=== PATIENT | male | born 1955 | race African-American/Black ===

== ENCOUNTER 2017-02-05 23:35 | Emergency (ER) | payer SELFPAY ==
[2017-02-06 00:30] VITALS: BP 173/115
[2017-02-06] MEDS ORDERED: cloNIDine HCL 0.1 MG TABLET PO ONE (00:30)
[2017-02-06 00:55] LABS: BASO # 0.1 x10^3/uL (0.0-0.2); BASO % 1 % (0-3); EOS # 0.2 x10^3/uL (0.0-0.7); EOS % 3 % (0-3); HEMATOCRIT 39.4 % (39.0-53.0); LYMPH # 1.5 x10^3/uL (1.0-4.8); LYMPH % 23 % (24-48); MEAN CORPUSCULAR HEMOGLOBIN 28 pg (25-35); MEAN CORPUSCULAR HGB CONC 33 g/dL (31-37); MEAN CORPUSCULAR VOLUME 84 fL (79-100); MONO # 0.7 x10^3/uL (0.0-1.1); MONO % 11 % (0-9); NEUT # 4.1 x10^3uL (1.8-7.7); NEUT % 63 % (31-73); PLATELET COUNT 289 x10^3/uL (140-400); RED CELL DISTRIBUTION WIDTH 15.2 % (11.5-14.5); WHITE BLOOD COUNT 6.5 x10^3/uL (4.0-11.0)
[2017-02-06 01:07] LABS: ALBUMIN 3.1 g/dL (3.4-5.0); ALBUMIN/GLOBULIN RATIO 0.8 (1.0-1.7); CALCIUM 8.4 mg/dL (8.5-10.1); GFR 75.7; TOTAL BILIRUBIN 0.1 mg/dL (0.2-1.0); TOTAL PROTEIN 6.8 g/dL (6.4-8.2)
[2017-02-06 01:35] LABS: BACTERIA,URINE 0 /HPF (0-FEW); BILIRUBIN,URINE NEG (NEG); CLARITY,URINE CLEAR; COLOR,URINE YELLOW; GLUCOSE,URINE NEG (NEG); NITRITE,URINE NEG (NEG); RBC,URINE 0 /HPF (0-2); SQUAMOUS EPITHELIAL CELL,UR OCC /LPF; UROBILINOGEN,URINE 0.2 mg/dL (0.2 mg/dL); WBC,URINE RARE /HPF (0-4)
[2017-02-06 01:37] LABS: BARBITURATES NEG (NEG); BENZODIAZEPINES NEG (NEG); CANNABINOIDS POS (NEG); COCAINE NEG (NEG); METHADONE POS (NEG); OPIATES NEG (NEG); PHENCYCLIDINE NEG (NEG)
[2017-02-06 01:38] LABS: AMPHETAMINE/METHAMPHETAMINE NEG (NEG)
[2017-02-06] MEDS ORDERED: FUROSEMIDE 40 MG/4 ML VIAL IVP ONE (02:15)
[2017-02-06] MEDS ORDERED: FUROSEMIDE 40 MG TABLET ONE (02:19)
[2017-02-06] MEDS ORDERED: FUROSEMIDE 40 MG TABLET PO ONE (02:30)
[2017-02-06] MEDS ORDERED: CLON0.1T PO (02:30)
--- NOTE | 2017-02-06 02:30 | PHYS DOC ---
Adult General Chief Complaint Chief Complaint: LOWER EXTREMITY SWELLING HPI HPI Patient is a 62-year-old male presenting to the emergency department for evaluation of a primary complaint of peripheral edema. This swelling has been going on for at least 2 weeks and he has been told by his methadone clinic to elevate his legs but he says he does not think that that is helping. Patient says that he is urinating more often but he has no painful urination. He also denies any chest pain shortness of breath fevers chills nausea vomiting or diarrhea. Patient says that he has no medical problems other than opioid and alcohol abuse for which she is seeking help currently. He says that he has not been shaky and does not think that he is withdrawing currently. He is taking his methadone as prescribed. Review of Systems Review of Systems Constitutional: Denies fever or chills [] Eyes: Denies change in visual acuity, redness, or eye pain [] HENT: Denies nasal congestion or sore throat [] Respiratory: Denies cough or shortness of breath [] Cardiovascular: No additional information not addressed in HPI [] GI: Denies abdominal pain, nausea, vomiting, bloody stools or diarrhea [] : Denies dysuria or hematuria [] Musculoskeletal: Denies back pain or joint pain [] Integument: Denies rash or skin lesions [] Neurologic: Denies headache, focal weakness or sensory changes [] All other systems were reviewed and found to be within normal limits, except as documented in this note. Current Medications Current Medications Current Medications Medications (Trade) Dose Ordered Sig/Raad Start Time Stop Time Status Last Admin Dose Admin Clonidine HCl (Catapres) 0.2 mg 1X ONCE 02/06/17 00:30 02/06/17 00:31 DC 02/06/17 00:30 0.2 MG Furosemide (Lasix) 40 mg STK-MED ONCE 02/06/17 02:19 02/06/17 02:20 DC Allergies Allergies Allergies Coded Allergies Type Severity Reaction Last Updated Verified Unable to Assess 02/06/17 No Physical Exam Physical Exam Constitutional: Well developed, well nourished, no acute distress, non-toxic appearance. [] HENT: Normocephalic, atraumatic, bilateral external ears normal, oropharynx moist, no oral exudates, nose normal. [] Eyes: PERRLA, EOMI, conjunctiva normal, no discharge. [] Neck: Normal range of motion, no tenderness, supple, no stridor. [] Cardiovascular:Heart rate regular rhythm, no murmur [] Lungs & Thorax: Bilateral breath sounds clear to auscultation [] Abdomen: Bowel sounds normal, soft, no tenderness, no masses, no pulsatile masses. [] Skin: Warm, dry, no erythema, no rash. [] Back: No tenderness, no CVA tenderness. [] Extremities: No tenderness, no cyanosis, no clubbing, ROM intact, 1-2+ edema BL equal. [] Neurologic: Alert and oriented X 3, normal motor function, normal sensory function, no focal deficits noted. [] Current Patient Data Vital Signs Vital Signs Date Time Temp Pulse Resp B/P (MAP) Pulse Ox O2 Delivery O2 Flow Rate FiO2 02/06/17 00:30 98 173/115 Lab Results Laboratory Tests Test 02/06/17 00:38 02/06/17 01:00 White Blood Count 6.5 x10^3/uL (4.0-11.0) Red Blood Count 4.70 x10^6/uL (4.30-5.70) Hemoglobin 13.0 g/dL (13.0-17.5) Hematocrit 39.4 % (39.0-53.0) Mean Corpuscular Volume 84 fL (79-100) Mean Corpuscular Hemoglobin 28 pg (25-35) Mean Corpuscular Hemoglobin Concent 33 g/dL (31-37) Red Cell Distribution Width 15.2 % (11.5-14.5) H Platelet Count 289 x10^3/uL (140-400) Neutrophils (%) (Auto) 63 % (31-73) Lymphocytes (%) (Auto) 23 % (24-48) L Monocytes (%) (Auto) 11 % (0-9) H Eosinophils (%) (Auto) 3 % (0-3) Basophils (%) (Auto) 1 % (0-3) Neutrophils # (Auto) 4.1 x10^3uL (1.8-7.7) Lymphocytes # (Auto) 1.5 x10^3/uL (1.0-4.8) Monocytes # (Auto) 0.7 x10^3/uL (0.0-1.1) Eosinophils # (Auto) 0.2 x10^3/uL (0.0-0.7) Basophils # (Auto) 0.1 x10^3/uL (0.0-0.2) Prothrombin Time 9.9 SEC (9.4-11.4) Prothrombin Time INR 1.0 (0.9-1.1) PTT 23 SEC (23-33) Sodium Level 138 mmol/L (136-145) Potassium Level 4.0 mmol/L (3.5-5.1) Chloride Level 103 mmol/L (98-107) Carbon Dioxide Level 28 mmol/L (21-32) Anion Gap 7 (6-14) Blood Urea Nitrogen 16 mg/dL (8-26) Creatinine 1.0 mg/dL (0.7-1.3) Estimated GFR (Cockcroft-Gault) 75.7 BUN/Creatinine Ratio 16 (6-20) Glucose Level 100 mg/dL (70-99) H Calcium Level 8.4 mg/dL (8.5-10.1) L Magnesium Level 2.0 mg/dL (1.8-2.4) Total Bilirubin 0.1 mg/dL (0.2-1.0) L Aspartate Amino Transferase (AST) 18 U/L (15-37) Alanine Aminotransferase (ALT) 16 U/L (16-63) Alkaline Phosphatase 105 U/L (46-116) Ammonia 16 mcmol/L (11-34) Total Protein 6.8 g/dL (6.4-8.2) Albumin 3.1 g/dL (3.4-5.0) L Albumin/Globulin Ratio 0.8 (1.0-1.7) L Lipase 160 U/L (73-393) Ethyl Alcohol Level < 10 mg/dL (0-10) Urine Collection Type Unknown Urine Color Yellow Urine Clarity Clear Urine pH 8.5 Urine Specific [place] 1.015 Urine Protein Neg (NEG-TRACE) Urine Glucose (UA) Neg mg/dL (NEG) Urine Ketones (Stick) Neg mg/dL (NEG) Urine Blood Neg (NEG) Urine Nitrite Neg (NEG) Urine Bilirubin Neg (NEG) Urine Urobilinogen Dipstick 0.2 mg/dL (0.2 mg/dL) Urine Leukocyte Esterase Neg (NEG) Urine RBC 0 /HPF (0-2) Urine WBC Rare /HPF (0-4) Urine Squamous Epithelial Cells Occ /LPF Urine Bacteria 0 /HPF (0-FEW) Urine Opiates Screen Neg (NEG) Urine Methadone Screen Pos (NEG) Urine Barbiturates Neg (NEG) Urine Phencyclidine Screen Neg (NEG) Urine Amphetamine/Methamphetamine Neg (NEG) Urine Benzodiazepines Screen Neg (NEG) Urine Cocaine Screen Neg (NEG) Urine Cannabinoids Screen Pos (NEG) Urine Ethyl Alcohol Neg (NEG) EKG EKG [] Radiology/Procedures Radiology/Procedures [] Course & Med Decision Making Course & Med Decision Making Patient with bilateral peripheral edema that is likely some from venous insufficiency. There is no signs or symptoms of liver failure and kidney failure DVT or congestive heart failure. I ordered a BNP initially however it somehow was canceled. I told the patient that I would like to reorder it and redraw however he refused stating that he wanted to leave as he felt well. He verbalized understanding of why I wanted to do it rule out congestive heart failure. Certainly this is less likely given he has no shortness of breath or chest pain but he does have elevated blood pressure putting him at high risk for heart failure. His blood pressure is quite elevated here and he continues to deny any alcohol withdrawal symptoms and he does not have any hand tremors or tongue fasciculations. I told him that I will prescribe some clonidine as this would help any potential withdrawal symptoms and it will help his blood pressure as well but I told him it is very important that he follows with a primary care physician for these complaints as he would likely need further workup for his hypertension and possible medication adjustments as well. Resources were provided to the patient for primary follow-up and he was told to take his medications as prescribed and come back to the ED with any new or worsening pain fevers vomiting or other general concerns. Patient aware and agreeable with plan for discharge and verbalized understanding of the need for short-term follow-up and strict ED return precautions discussed as above. Dragon Disclaimer Dragon Disclaimer This electronic medical record was generated, in whole or in part, using a voice recognition dictation system. Departure Departure: Impression: Primary Impression: Peripheral edema Additional Impression: Hypertension Disposition: 01 HOME, SELF-CARE Condition: STABLE Patient Instructions: Peripheral Edema Scripts Clonidine Hcl (CLONIDINE HCL) 0.1 Mg Tablet 0.1 MG PO BID, #60 TAB Prov: EUGENIA BARNHART DO 02/06/17 Problem Qualifiers EUGENIA BARNHART DO Feb 06, 2017 02:30
== END 2017-02-06 02:42 | disposition home or self-care (01) ==
LOC: ER 23:35
DX: R60.0 Localized edema (principal); I10 Essential (primary) hypertension; F11.10 Opioid abuse, uncomplicated; F10.10 Alcohol abuse, uncomplicated
CPT/HCPCS: 36415; 80053; 80307; 81001; 82140; 83690; 83735; 85025; 85610; 85730; 99284; G0480; G0479

== ENCOUNTER 2017-02-13 05:30 | Emergency (ER) | payer SELFPAY ==
[~2017-02-13 05:30] MED LIST: CLON0.1T PO
[2017-02-13] MEDS ORDERED: LISI1TAB3 PO (06:30)
--- NOTE | 2017-02-13 06:30 | PHYS DOC ---
Past History Past Medical History: Hypertension Alcohol Use: Heavy Drug Use: Marijuana, Methadone Adult General Chief Complaint Chief Complaint: LOWER EXTREMITY SWELLING HPI HPI 62-year-old male patient brought his girlfriend to ER for evaluation and later on the evening of swelling of both of his legs for more than one week. Patient also states his blood pressure is elevated and he didn't take his medication today. Patient did not check his blood pressure today and just refers to the blood pressure obtaining in triage. Patient denies chest pain, shortness of breath, generalized weakness, headache, focal neuro deficit, fever and chills. Patient was seen on February 06 with the same complaint and had extensive evaluation with normal renal function tests and started on clonidine twice a day. Review of Systems Review of Systems Constitutional: Denies fever or chills [] Eyes: Denies change in visual acuity, redness, or eye pain [] HENT: Denies nasal congestion or sore throat [] Respiratory: Denies cough or shortness of breath [] Cardiovascular: No additional information not addressed in HPI [] GI: Denies abdominal pain, nausea, vomiting, bloody stools or diarrhea [] : Denies dysuria or hematuria [] Musculoskeletal: Denies back pain or joint pain, reports ankle edema [] Integument: Denies rash or skin lesions [] Neurologic: Denies headache, focal weakness or sensory changes [] Endocrine: Denies polyuria or polydipsia [] All other systems were reviewed and found to be within normal limits, except as documented in this note. Current Medications Current Medications Current Medications Medications (Trade) Dose Ordered Sig/Raad Start Time Stop Time Status Last Admin Dose Admin Clonidine HCl (Catapres) 0.1 mg 1X ONCE 02/13/17 07:00 02/13/17 07:01 Allergies Allergies Allergies Coded Allergies Type Severity Reaction Last Updated Verified Unable to Assess 02/06/17 No Physical Exam Physical Exam Constitutional: No acute distress, non-toxic appearance,anxious. [] HENT: Normocephalic, atraumatic, bilateral external ears normal, oropharynx moist, no oral exudates, nose normal. [] Eyes: PERRLA, EOMI, conjunctiva normal, no discharge. [] Neck: Normal range of motion, no tenderness, supple, no stridor. [] Cardiovascular:Heart rate regular rhythm, no murmur [] Lungs & Thorax: Bilateral breath sounds clear to auscultation [] Abdomen: Bowel sounds normal, soft, no tenderness, no masses, no pulsatile masses. [] Skin: Warm, dry, no erythema, no rash. [] Back: No tenderness, no CVA tenderness. [] Extremities: No tenderness, no cyanosis, no clubbing, ROM intact, trace edema around ankles [] Neurologic: Alert and oriented X 3, normal motor function, normal sensory function, no focal deficits noted. [] Psychologic: Affect normal, judgement normal, mood normal. [] Current Patient Data Vital Signs Vital Signs Date Time Temp Pulse Resp B/P (MAP) Pulse Ox O2 Delivery O2 Flow Rate FiO2 02/13/17 05:55 98.2 102 20 98 Room Air EKG EKG [] Radiology/Procedures Radiology/Procedures [] Course & Med Decision Making Course & Med Decision Making Evaluation of patient in ER showed 62-year-old male patient complaining of elevation of blood pressure and bilateral leg swelling who had evaluation in ER visit 1 week ago with the same problem and started on clonidine. Patient had blood pressure of 160s over 115 arrival to ER and treated with clonidine and his blood pressure dropped to 157/101 and did not want to have blood tests. Plan to give prescription for lisinopril/hydrochlorothiazide. Patient instructed to quit smoking cigarettes and drinking of alcohol and using methadone and marijuana. Dragon Disclaimer Dragon Disclaimer This electronic medical record was generated, in whole or in part, using a voice recognition dictation system. Departure Departure: Impression: Primary Impression: Uncontrolled hypertension Additional Impressions: Pedal edema Tobacco abuse Tobacco abuse counseling History of substance abuse Disposition: HOME, SELF-CARE (At 0640) Condition: IMPROVED Referrals: PCP,NO (PCP) Patient Instructions: Hypertension, [id number], Peripheral Edema Scripts Lisinopril/Hydrochlorothiazide (LISINOPRIL-HCTZ 10-12.5 MG TAB) 1 Each Tablet 1 TAB PO DAILY, #30 TAB 5 Refills Prov: BULMARO RAUSCH MD 02/13/17 Problem Qualifiers BULMARO RAUSCH MD Feb 13, 2017 06:30
[2017-02-13] MEDS ORDERED: cloNIDine HCL 0.1 MG TABLET PO ONE (07:00)
[2017-02-13 07:24] VITALS: BP 151/101
== END 2017-02-13 07:26 | disposition home or self-care (01) ==
LOC: ER 05:30
DX: I10 Essential (primary) hypertension (principal); R60.0 Localized edema; F15.10 Other stimulant abuse, uncomplicated; F19.10 Other psychoactive substance abuse, uncomplicated; F10.10 Alcohol abuse, uncomplicated; Z71.6 Tobacco abuse counseling
CPT/HCPCS: 99283